=== PATIENT | female | born 1975 | race Caucasian/White ===

== ENCOUNTER 2021-04-17 16:46 | Emergency (ER) | payer MEDICAID ==
[~2021-04-17] VITALS: Ht 154.9 cm; Wt 75.7 kg
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
[2021-04-17] MEDS ORDERED: ACETAMINOPHEN ES 500 MG TABLET ONE (17:26)
[2021-04-17] MEDS ORDERED: CYCLOBENZAPRINE 10 MG TABLET ONE (17:26)
[2021-04-17] MEDS ORDERED: CYCLOBENZAPRINE 10 MG TABLET PO ONE (17:30)
[2021-04-17] MEDS ORDERED: ACETAMINOPHEN ES 500 MG TABLET PO ONE (17:30)
[2021-04-17] MEDS ORDERED: ACET-2605 PO (17:50)
[2021-04-17] MEDS ORDERED: TRAM50TA2 PO (17:50)
[2021-04-17] MEDS ORDERED: CYCL5TAB PO (17:50)
--- NOTE | 2021-04-17 17:54 | NUR ---
Patient discharged to home in stable condition. Written and verbal after care instructions given. Patient verbalizes understanding of instruction.
[2021-04-17 17:56] VITALS: BP 120/73
== END 2021-04-17 17:57 | disposition home or self-care (01) ==
LOC: ER 16:56
DX: M54.5 Low back pain (principal); M54.2 Cervicalgia; Z90.710 Acquired absence of both cervix and uterus; Z79.899 Other long term (current) drug therapy; V49.49XA Driver injured in collision with other motor vehicles in traffic accident, initial encounter; Y93.89 Activity, other specified; Y92.488 Other paved roadways as the place of occurrence of the external cause; Y99.8 Other external cause status